=== PATIENT | male | born 1995 | race Caucasian/White ===

== ENCOUNTER 2019-04-18 07:45 | Emergency (ER) | payer OTHER ==
[2019-04-18 07:57] VITALS: TEMP 98.7
[2019-04-18] MEDS ORDERED: IPRATROPIUM-ALBUTEROL 3 ML NEB INHALATION STA ×2 (08:09→08:57)
[2019-04-18] MEDS ORDERED: DEXAMETHASONE SOD PHOSPHATE 10 MG/ML 1 ML VIAL IM STA (08:09)
--- NOTE | 2019-04-18 08:15 | ED ---
General Adult HPI - General Chief complaint: Shortness of Breath Stated complaint: SOB/asthma Time Seen by Provider: 04/18/19 07:59 Source: patient, RN notes reviewed Mode of arrival: wheelchair Limitations: no limitations - History of Present Illness Initial comments: 23-year-old male with a past medical history of asthma presents to the emergency determine for chief complaint of cough. Patient states he has been having a productive cough for the past 24 hours. States he is also short of breath. Feels like he is wheezing. States he has a history of asthma and this feels like an asthma exacerbation. States he ran out of medication for his nebulizer and lost his inhaler. Patient does admit to some mild pain when coughing. Patient has no other complaints at this time including chest pain, abdominal pain, nausea or vomiting, headache, or visual changes. - Related Data Previous Rx's Medication Instructions Recorded Albuterol Inhaler [Ventolin Hfa 1 - 2 puff INHALATION Q6HR PRN #1 04/18/19 Inhaler] inhaler Albuterol Nebulized [Ventolin 2.5 mg INHALATION Q6H PRN #20 nebu 04/18/19 Nebulized] Azithromycin [Zithromax Z-pack] 250 mg PO DIRECTED #6 tab 04/18/19 Dexamethasone [Decadron] 4 mg PO ONCE 1 Days #2 tablet 04/18/19 Allergies Allergy/AdvReac Type Severity Reaction Status Date / Time No Known Allergies Allergy Verified 04/18/19 09:55 Review of Systems ROS Statement: Those systems with pertinent positive or pertinent negative responses have been documented in the HPI. ROS Other: All systems not noted in ROS Statement are negative. Past Medical History Past Medical History: Asthma History of Any Multi-Drug Resistant Organisms: MRSA Date of last positivie culture/infection: 2009 MDRO Source:: hand Past Surgical History: Appendectomy Past Psychological History: ADD/ADHD Smoking Status: Current every day smoker Past Alcohol Use History: Occasional Past Drug Use History: Marijuana General Exam Limitations: no limitations General appearance: alert, in no apparent distress Head exam: Present: atraumatic, normocephalic, normal inspection Eye exam: Present: normal appearance, PERRL, EOMI. Absent: scleral icterus, conjunctival injection, periorbital swelling ENT exam: Present: normal exam, mucous membranes moist Neck exam: Present: normal inspection, full ROM. Absent: tenderness, meningismus, lymphadenopathy Respiratory exam: Present: wheezes (Wheezing noted throughout lung aviles bilaterally), decreased breath sounds. Absent: respiratory distress, rales, rhonchi, stridor Cardiovascular Exam: Present: regular rate, normal rhythm, normal heart sounds. Absent: systolic murmur, diastolic murmur, rubs, gallop, clicks Neurological exam: Present: alert, oriented X3, CN II-XII intact Psychiatric exam: Present: normal affect, normal mood Course Vital Signs 04/18/19 04/18/19 04/18/19 07:54 08:22 08:59 Temperature 98.7 F Pulse Rate 100 106 H Respiratory 26 H 20 Rate Blood Pressure 131/79 O2 Sat by Pulse 95 Oximetry 04/18/19 04/18/19 04/18/19 09:05 09:06 09:15 Temperature Pulse Rate 100 100 102 H Respiratory Rate Blood Pressure O2 Sat by Pulse Oximetry Medical Decision Making - Medical Decision Making 23-year-old male with history of asthma presents for chief cleaned of cough. Patient has had a productive cough for the past 24 hours. States he is also short of breath. On exam patient does have wheezing noted. Patient 95% on room air. Initially had a respiratory rate of 26 however after 2 breathing treatments is normalized to 20. Patient mildly tachycardic, likely secondary to albuterol given. After albuterol wheezing has improved, patient reports that he is feeling much better. However x-ray does show possible correlate for bronchitis asthma or atypical pneumonias. Therefore patient will be treated with a Z-Pawan. Patient was given Decadron here in the emergency department and will be redosed in 2 days. Albuterol inhaler and nebulizer refilled. Patient will follow up with primary care. However he will return here if he has any worsening symptoms. Disposition Clinical Impression: Pneumonia, Asthma exacerbation Disposition: HOME SELF-CARE Condition: Good Instructions (If sedation given, give patient instructions): Asthma (ED), Pneumonia (ED) Additional Instructions: Please take antibiotic starting today. Take Decadron 2 days from now. Continue to use breathing treatments and inhaler as needed. Return here if you have any worsening symptoms. Prescriptions: Dexamethasone [Decadron] 4 mg PO ONCE 1 Days #2 tablet Albuterol Inhaler [Ventolin Hfa Inhaler] 1 - 2 puff INHALATION Q6HR PRN #1 inhaler PRN Reason: Shortness Of Breath Albuterol Nebulized [Ventolin Nebulized] 2.5 mg INHALATION Q6H PRN #20 nebu PRN Reason: Shortness Of Breath Azithromycin [Zithromax Z-pack] 250 mg PO DIRECTED #6 tab Is patient prescribed a controlled substance at d/c from ED?: No Referrals: Luz Patel MD [STAFF PHYSICIAN] - 1-2 days Time of Disposition: 10:11
--- NOTE | 2019-04-18 09:26 | XR ---
EXAMINATION TYPE: XR chest 2V DATE OF EXAM: 04/18/2019 COMPARISON: 10/05/2015 HISTORY: 23-year-old male with pain TECHNIQUE: PA and lateral views FINDINGS: Heart normal size. Aorta and pulmonary vasculature within normal limits. Mild interstitial densities in the lower lungs and mild peribronchial cuffing. No consolidation or pleural effusion. IMPRESSION: Some mild interstitial changes and peribronchial cuffing. Correlate for bronchitis, asthma, or atypic al pneumonias. No focal infiltrate seen.
[2019-04-18 10:16] VITALS: BP 144/76; PULSE 93; RESP 18
== END 2019-04-18 10:38 | disposition home or self-care (01) ==
LOC: EC 07:45
DX: J45.901 Unspecified asthma with (acute) exacerbation (principal); J18.9 Pneumonia, unspecified organism; R00.0 Tachycardia, unspecified; F17.200 Nicotine dependence, unspecified, uncomplicated
CPT/HCPCS: 94640 ×2; 71046; 99285; 96372; J1100

== ENCOUNTER 2020-01-23 18:31 | Emergency (ER) | payer OTHER ==
[2020-01-23] MEDS ORDERED: KETOROLAC 30 MG/ML 1 ML VIAL IM STA (18:44)
--- NOTE | 2020-01-23 18:55 | ED ---
General Adult HPI - General Chief complaint: Extremity Injury, Lower Stated complaint: Leg pain Time Seen by Provider: 01/23/20 18:36 Source: patient, RN notes reviewed, old records reviewed Mode of arrival: wheelchair Limitations: no limitations - History of Present Illness Initial comments: 24-year-old male presenting with left ankle pain. Patient is uncertain if he injured this ankle, believes he may have injured his ankle but was approximately 2 weeks prior. He's had pain on the posterior aspect of his left ankle and heel as well as left for the past several days. He's had pain with ambulation. Denying fever or chills. Denying any specific injury in the past 48 hours. No other pain complaint. - Related Data Previous Rx's Medication Instructions Recorded Albuterol Inhaler (Bulk) [Ventolin 1 - 2 puff INHALATION Q6HR PRN #1 04/18/19 Hfa Inhaler (Bulk)] inhaler Albuterol Nebulized [Ventolin 2.5 mg INHALATION Q6H PRN #20 nebu 04/18/19 Nebulized] Azithromycin [Zithromax Z-pack] 250 mg PO DIRECTED #6 tab 04/18/19 Dexamethasone [Decadron] 4 mg PO ONCE 1 Days #2 tablet 04/18/19 Ibuprofen [Motrin] 600 mg PO Q8HR PRN #24 tab 01/23/20 Allergies Allergy/AdvReac Type Severity Reaction Status Date / Time No Known Allergies Allergy Verified 01/23/20 18:35 Review of Systems ROS Statement: Those systems with pertinent positive or pertinent negative responses have been documented in the HPI. ROS Other: All systems not noted in ROS Statement are negative. Past Medical History Past Medical History: Asthma, Pneumonia History of Any Multi-Drug Resistant Organisms: MRSA Date of last positivie culture/infection: 2009 MDRO Source:: hand Past Surgical History: Appendectomy Past Psychological History: ADD/ADHD Smoking Status: Current every day smoker Past Alcohol Use History: Occasional Past Drug Use History: Marijuana General Exam Limitations: no limitations General appearance: alert, in no apparent distress Head exam: Present: atraumatic, normocephalic Eye exam: Present: normal appearance, PERRL ENT exam: Present: normal exam Neck exam: Present: normal inspection. Absent: tenderness, meningismus Respiratory exam: Present: normal lung sounds bilaterally. Absent: respiratory distress, wheezes Cardiovascular Exam: Present: regular rate, normal rhythm GI/Abdominal exam: Present: soft. Absent: distended, tenderness, guarding Extremities exam: Present: other (Left lower extremity, no significant swelling in the calf, there is swelling on the medial aspect of the left heel and swelling below the medial malleolus with tenderness to palpation. There is no erythema, no fluctuance. There is tenderness along the Achilles. Distal pulses are intact. Range of motion is limited secondary to pain.) Neurological exam: Present: alert, oriented X3, CN II-XII intact. Absent: motor sensory deficit Psychiatric exam: Present: normal affect, normal mood Skin exam: Present: warm, dry, intact. Absent: cyanosis, diaphoretic, erythema Course Vital Signs 01/23/20 18:32 Temperature 99.0 F Pulse Rate 89 Respiratory 20 Rate Blood Pressure 136/84 O2 Sat by Pulse 99 Oximetry Procedures - Orthopedic Splinting/Casting Injury #1 Side: left Lower Extremity Injury Location: ankle Lower Extremity Immobilizer: stirrup splint, fiberglass cast Additional Comments: Nonweightbearing. Medical Decision Making - Medical Decision Making 24-year-old with left ankle pain and swelling. On exam there is tenderness on the medial malleolus and medial foot below the medial malleolus, there is some tenderness along the Achilles. No significant warmth. No crepitus or fluctuance. X-ray showing a effusion tibiotalar. No fracture dislocation. Ultrasound performed which is negative for DVT. Patient is placed in a stirrup splint, encouraged to ice, elevate the extremity and take Motrin [id number] for anti-inflammation and pain control. He is given orthopedic follow-up if symptoms persist. He is given strict return parameters with worsening symptoms, or the development of fever. I have a low suspicion for septic arthritis however the injury was approximately 2 weeks ago and symptoms of the present for only 48 hours. I suspect this was secondary to injury or reinjury however patient is given strict return parameters for septic arthritis. Disposition Clinical Impression: Ankle sprain Disposition: HOME SELF-CARE Condition: Good Instructions (If sedation given, give patient instructions): Ankle Sprain (ED) Prescriptions: Ibuprofen [Motrin] 600 mg PO Q8HR PRN #24 tab PRN Reason: Pain Is patient prescribed a controlled substance at d/c from ED?: No Referrals: None,Stated [Primary Care Provider] - 1-2 days Fer Hastings MD [Medical Doctor] - 1-2 days Time of Disposition: 19:35
--- NOTE | 2020-01-23 19:12 | XR ---
EXAMINATION TYPE: XR ankle complete LT DATE OF EXAM: 01/23/2020 COMPARISON: NONE HISTORY: 24-year-old male with ankle pain after injury TECHNIQUE: 3 views FINDINGS: Os supranaviculare noted. Underlying tibiotalar joint effusion. Smooth delineation to the Achilles te ndon. Subtalar joint is aligned. Ankle mortise is congruent. No acute fracture, subluxation, or dislo cation seen. Talar dome is intact. IMPRESSION: Tibiotalar joint effusion. Otherwise, no acute osseous abnormality seen.
--- NOTE | 2020-01-23 19:45 | US ---
EXAMINATION TYPE: US venous doppler duplex LE LT DATE OF EXAM: 01/23/2020 7:22 PM COMPARISON: NONE CLINICAL HISTORY: 24-year-old male rule out DVT. Edema and pain left lower leg for 3 to 4 days SIDE PERFORMED: left TECHNIQUE: The lower extremity deep venous system is examined utilizing real time linear array sonog philomena with graded compression, doppler sonography and color-flow sonography. FINDINGS: VESSELS IMAGED: External Iliac Vein (EIV) Common Femoral Vein Deep Femoral Vein Greater Saphenous Vein * Femoral Vein Popliteal Vein Small Saphenous Vein * Proximal Calf Veins (* superficial vessels) Left Leg: No evidence of DVT IMPRESSION: No evidence for DVT within the left lower extremity imaged from the groin through the upper calf.
[2020-01-23 19:57] VITALS: BP 141/94; PULSE 68; RESP 16; TEMP 98.7
== END 2020-01-23 19:55 | disposition home or self-care (01) ==
LOC: EC 18:31
DX: S93.402A Sprain of unspecified ligament of left ankle, initial encounter (principal); F17.200 Nicotine dependence, unspecified, uncomplicated; Z86.14 Personal history of Methicillin resistant Staphylococcus aureus infection; X58.XXXA Exposure to other specified factors, initial encounter
CPT/HCPCS: 73610; 93971; 99284; 29515; 96372; J1885

== ENCOUNTER 2020-07-02 01:42 | Inpatient (IN) | payer MEDICAID, OTHER ==
--- NOTE | 2020-07-02 02:13 | ED ---
Psych HPI - General Source: patient Mode of arrival: ambulatory - History of Present Illness MD Complaint: suicidal ideation, feels depressed Onset/Timin -: days(s) Associated Psychiatric Symptoms: depression, suicidal ideation Quality: getting worse Improves With: none Worsens With: drug use Context: recent drug abuse Associated Symptoms: denies other symptoms <JeannieGerald - Last Filed: 07/02/20 02:10> <Oleg Clifford - Last Filed: 07/02/20 08:42> - General Chief Complaint: Psychiatric Symptoms Stated Complaint: Mental health Time Seen by Provider: 07/02/20 01:56 - History of Present Illness Initial Comments: This patient is 24-year-old man who presents to be evaluated for depression and suicidal ideation. The patient states that he has had some long-standing depression and is not currently receiving any treatment. Earlier today, patient relapsed and used cocaine and he has had some accompanying suicidal ideation. (Gerald Dennis) - Related Data Home Medications Medication Instructions Recorded Confirmed No Known Home Medications 07/02/20 07/02/20 Allergies Allergy/AdvReac Type Severity Reaction Status Date / Time No Known Allergies Allergy Verified 07/02/20 08:00 Review of Systems ROS Other: All systems not noted in ROS Statement are negative. Constitutional: Denies: fever, chills Respiratory: Denies: cough, dyspnea Cardiovascular: Denies: chest pain, palpitations, syncope Gastrointestinal: Denies: abdominal pain, vomiting, diarrhea Genitourinary: Denies: dysuria Skin: Denies: rash Neurological: Denies: headache, weakness, numbness Psychiatric: Reports: depression, suicidal thoughts. Denies: auditory hallucinations, visual hallucinations, homicidal thoughts <Gerald Dennis - Last Filed: 07/02/20 02:10> ROS Other: All systems not noted in ROS Statement are negative. <Oleg Clifford - Last Filed: 07/02/20 08:42> ROS Statement: Those systems with pertinent positive or pertinent negative responses have been documented in the HPI. Past Medical History Past Medical History: Asthma, Pneumonia History of Any Multi-Drug Resistant Organisms: MRSA Date of last positivie culture/infection: 2009 MDRO Source:: hand Past Surgical History: Appendectomy Past Psychological History: ADD/ADHD, Anxiety, Bipolar, Depression Smoking Status: Current every day smoker Past Alcohol Use History: Occasional Past Drug Use History: Cocaine, Marijuana <Gerald Dennis - Last Filed: 07/02/20 02:10> General Exam Limitations: no limitations General appearance: alert, in no apparent distress Head exam: Present: atraumatic, normocephalic Eye exam: Present: normal appearance. Absent: scleral icterus, conjunctival injection Respiratory exam: Present: normal lung sounds bilaterally. Absent: respiratory distress, wheezes, rales, rhonchi, stridor Cardiovascular Exam: Present: regular rate, normal rhythm, normal heart sounds. Absent: systolic murmur, diastolic murmur, rubs, gallop GI/Abdominal exam: Present: soft. Absent: distended, tenderness, guarding, rebound Extremities exam: Present: normal inspection, normal capillary refill Neurological exam: Present: alert Psychiatric exam: Present: depressed, suicidal ideation. Absent: agitated, anxious, flat affect, manic, homicidal ideation Skin exam: Present: warm, dry, intact, normal color. Absent: rash <Gerald Dennis - Last Filed: 07/02/20 02:10> Course Vital Signs 07/02/20 01:46 Temperature 98.6 F Pulse Rate 65 Respiratory 20 Rate Blood Pressure 150/87 O2 Sat by Pulse 98 Oximetry Medical Decision Making - Lab Data Lab Results 07/02/20 Range/Units 02:19 Urine Opiates Screen Not Detected (NotDetected) Ur Oxycodone Screen Not Detected (NotDetected) Urine Methadone Screen Not Detected (NotDetected) Ur Propoxyphene Screen Not Detected (NotDetected) Ur Barbiturates Screen Not Detected (NotDetected) U Tricyclic Antidepress Not Detected (NotDetected) Ur Phencyclidine Scrn Not Detected (NotDetected) Ur Amphetamines Screen Not Detected (NotDetected) U Methamphetamines Scrn Not Detected (NotDetected) U Benzodiazepines Scrn Not Detected (NotDetected) Urine Cocaine Screen Detected H (NotDetected) U Marijuana (THC) Screen Detected H (NotDetected) Disposition <Gerald Dennis - Last Filed: 07/02/20 02:10> Time of Disposition: 08:42 <Oleg Clifford - Last Filed: 07/02/20 08:42> Clinical Impression: Suicidal ideation, Depression Disposition: ADMITTED IP TO THIS HOSP Referrals: None,Stated [Primary Care Provider] - 1-2 days
[2020-07-02 02:40] LABS: Amphetamine Screen,Urine Not Detected (NotDetected); Barbiturate Screen,Urine Not Detected (NotDetected); Benzodiazepines Screen,Urine Not Detected (NotDetected); Cocaine Screen,Urine Detected (NotDetected); Methadone Screen, Urine Not Detected (NotDetected); Opiate Screen,Urine Not Detected (NotDetected); Oxycodone Screen, Urine Not Detected (NotDetected); Phencyclidine Screen,Urine Not Detected (NotDetected); Tricyclic Antidepressant,Urine Not Detected (NotDetected); Urn Cannabinoid Scrn Detected (NotDetected)
[2020-07-02] MEDS ORDERED: ZIPRASIDONE 20 MG VIAL IM PRN (13:04)
[2020-07-02] MEDS ORDERED: ACETAMINOPHEN TAB 325 MG TAB PO PRN (13:04)
[2020-07-02] MEDS ORDERED: LORazepam 1 MG TAB PO PRN (13:04)
[2020-07-02] MEDS ORDERED: MAGNESIUM HYDROXIDE 2,400 MG/10 ML CUP PO PRN (13:04)
[2020-07-02] MEDS ORDERED: MAG HYDROX/AL HYDROX/SIMETH 30 ML CUP PO PRN (13:04)
[2020-07-02] MEDS ORDERED: LORazepam 2 MG/ML INJ IM PRN (13:06)
[2020-07-02] MEDS: NICOTINE 14MG/24HR PATCH TRANSDERM SCH (15:01)
[2020-07-02] MEDS: FLUoxetine HCL 20 MG CAP PO SCH (20:46)
[2020-07-02] MEDS: OLANZapine 5 MG TAB PO SCH (20:47)
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
[2020-07-03 08:17] LABS: ALT 18 U/L (4-49); AST 24 U/L (17-59); African American GFR (CKD) >90 (>60 ml/min/1.73 sqM); Albumin 4.2 g/dL (3.5-5.0); Alkaline Phosphatase 48 U/L (38-126); Anion Gap 7 mmol/L; Blood Urea Nitrogen 17 mg/dL (9-20); Calcium 9.4 mg/dL (8.4-10.2); Carbon Dioxide 25 mmol/L (22-30); Chloride 107 mmol/L (98-107); Glucose 105 mg/dL (74-99); Non-African American GFR(CKD) 78 (>60 ml/min/1.73 sqM); Potassium 4.6 mmol/L (3.5-5.1); Sodium 139 mmol/L (137-145); Total Bilirubin 0.7 mg/dL (0.2-1.3)
[2020-07-03 08:21] LABS: Basophils # (A) 0.1 k/uL (0-0.2); Basophils % (A) 1 %; Eosinophils # (A) 0.7 k/uL (0-0.7); Eosinophils % (A) 9 %; HCT 53.3 % (39.0-53.0); HGB 17.3 gm/dL (13.0-17.5); Lymphocytes % (A) 38 %; MCH 28.6 pg (25.0-35.0); MCHC 32.4 g/dL (31.0-37.0); MCV 88.3 fL (80.0-100.0); Mean Platelet Volume 7.2; Monocytes # (A) 0.4 k/uL (0-1.0); Monocytes % (A) 6 %; Neutrophils # (A) 3.5 k/uL (1.3-7.7); Neutrophils % (A) 43 %; Platelet Count 253 k/uL (150-450); RBC 6.03 m/uL (4.30-5.90); RDW 12.4 % (11.5-15.5); WBC 8.1 k/uL (3.8-10.6)
[2020-07-03] MEDS: OLANZapine 5 MG TAB PO SCH ×2 (10:24→22:11)
[2020-07-03] MEDS: FLUoxetine HCL 20 MG CAP PO SCH (10:24)
[2020-07-03] MEDS: NICOTINE 14MG/24HR PATCH TRANSDERM SCH (10:24)
--- NOTE | 2020-07-03 16:01 | PN ---
PROGRESS NOTE DATE OF SERVICE: 07/03/2020 CHIEF COMPLAINT: The patient was depressed with suicidal thinking. He said he was contemplating hanging himself and took the step of removing a ceiling tile to access a joist as a place to tie a rope. INTERVAL HISTORY: Patient has been doing fair. He had a quiet day yesterday. He comes out in the day area. He attended groups. He interacts with others. He has been cooperative with care. He said he slept excessively last night in into the morning so he missed the morning group. He said that the medicine has made him quite tired. He continues with a down mood, though says that things are a little better for him. He has a little better outlook. He says he has had time to process things that he has been through and feels that he can make some better plans for himself for the future. Staff have noted that he tends not to show much for any emotional issues. He seems to minimize some of the issues that led to him coming into the hospital which apparently were quite serious and intense. He has no specific complaints relating to his medications other than sedation. MENTAL STATUS: Patient gave good eye contact. Psychomotor activity was a little restless. He answered questions appropriately. His thoughts were clear. His affect was somewhat constricted. He had a reserved manner. He smiled a little throughout the interview, though it seemed to be as much an anxious smile is anything else. His mood was reserved. It was difficult to sense how distressed he might be feeling. There was no indication of thought disorder. Cognition was clear. ASSESSMENT: I will continue the current diagnosis and treatment plan. The patient has been attending groups and seems to be appropriate in groups. I encouraged him to continue groups. I will reduce his Zyprexa to just 5 mg at bedtime. I discussed some discharge planning issues with the patient. I reviewed medication issues in regard to indication, potential side effects and concerns relating to metabolics. We will focus on stabilization and discharge planning. MMCYNTHIAL / BAYRONN: [id number] /
--- NOTE | 2020-07-03 16:59 | P.MDCNMH ---
History of Present Illness H&P Date: 07/03/20 24-year-old male with PMH of cocaine abuse presents the ED for suicidal ideation. He has been admitted to mental health unit for further management and observation. [facility] physicians has been consulted for medical management of this patient. Patient reports relapsing on cocaine. Last use 2 days ago. States that he was clean for 5 months prior to relapsing. Patient complains of fatigue and states he does not want to take any psychiatric medication due to sleepiness. He has no other complaints. He denies any headache, lower extremity edema, nausea or vomiting, fever chills, cough, chest pain, shortness of breath, palpitations, changes in urination or bowel habits. No changes in appetite or weight. He denies any dizziness, numbness/weakness/tingling of the extremities. His vital signs are stable. CBC shows hemoconcentration with hemoglobin of 17.3. CMP shows creatinine of 1.6, glucose of 105. UDS is positive for marijuana and cocaine. Review of Systems Pertinent positives and negatives as discussed in HPI, a complete review of s ystems was performed and all other systems are negative. Past Medical History Past Medical History: Asthma, Pneumonia History of Any Multi-Drug Resistant Organisms: MRSA Date of last positivie culture/infection: 2009 MDRO Source:: hand Past Surgical History: Appendectomy Past Psychological History: ADD/ADHD, Anxiety, Bipolar, Depression Smoking Status: Current every day smoker Past Alcohol Use History: Occasional Past Drug Use History: Cocaine, Marijuana Medications and Allergies Home Medications Medication Instructions Recorded Confirmed Type No Known Home Medications 07/02/20 07/02/20 History Allergies Allergy/AdvReac Type Severity Reaction Status Date / Time No Known Allergies Allergy Verified 07/02/20 08:00 Physical Exam Vitals: Vital Signs Temp Pulse Resp BP 07/03/20 07:05 97.9 F 57 L 16 107/67 General: [non toxic], [no distress], [appears at stated age] Derm: [warm], [dry] Head: [atraumatic], [normocephalic], [symmetric] Eyes: [EOMI], [no lid lag], [anicteric sclera] Mouth: [no lip lesion], [mucus membranes moist] Cardiovascular: [S1S2 reg], [no murmur], [positive posterior tibial pulse bilateral], Lungs: [CTA bilateral], [no rhonchi, no rales] , [no accessory muscle use] Abdominal: [soft], [ nontender to palpation], [no guarding], [no appreciable organomegaly] Ext: [no gross muscle atrophy], [no edema], [no contractures] Neuro: [ CN II-XI grossly intact], [no focal neuro deficits] Psych: [Alert], [oriented], [appropriate affect] Cranial Nerve Examination - Cranial Nerves Cranial Nerve II- Optic: Intact Cranial Nerve III- Oculomotor: Intact Cranial Nerve IV- Trochlear: Intact Cranial Nerve V- Trigeminal: Intact Cranial Nerve - Abducens: Intact Cranial Nerve VII- Facial: Intact Cranial Nerve VIII- Auditory: Intact Cranial Nerve IX- Glossopharyngeal: Intact Cranial Nerve X- Vagus: Intact Cranial Nerve XI- Accessory: Intact Cranial Nerve XII- Hypoglossal: Intact Results CBC & Chem 7: 07/03/20 07:54 07/03/20 07:54 Labs: Abnormal Lab Results - Last 24 Hours (Table) 07/03/20 07/03/20 Range/Units 07:54 07:54 RBC 6.03 H (4.30-5.90) m/uL Hct 53.3 H (39.0-53.0) % Creatinine 1.26 H (0.66-1.25) mg/dL Glucose 105 H (74-99) mg/dL Assessment and Plan Assessment: Elevated creatinine Polysubstance abuse Smoker Creatinine 1.26. Unknown baseline. Plans: Encourage hydration by mouth. Avoid nephrotoxic medications. UDS positive cocaine and marijuana. Plans: Patient advised to quit. Ativan as needed for agitation. Patient would like gum as patch is irritating to his skin. Plans: Nicotine polacrilex 2 mg every 4 hours as needed. Thank you for this consult. Please call with any additional questions or concerns.
[2020-07-04] MEDS: FLUoxetine HCL 20 MG CAP PO SCH (08:53)
[2020-07-04] MEDS: OLANZapine 5 MG TAB PO SCH (21:54)
[2020-07-05] MEDS: FLUoxetine HCL 20 MG CAP PO SCH (10:11)
--- NOTE | 2020-07-05 10:56 | PN ---
PROGRESS NOTE DATE OF SERVICE: 07/04/2020 CHIEF COMPLAINT: The patient was depressed with suicidal thinking. He said he was contemplating hanging himself and took a step of removing a ceiling tile to access a joist as a place to tie a rope. INTERVAL HISTORY: Patient has been doing fairly well. He had a quiet day yesterday he tends to keep to himself. He does come out some and will move around the unit. He will interact a little with others. He did not attend groups yesterday. He has been appropriate in his interaction with staff and peers. He reports that he slept well last night, today he has been up. He comes out in the day area. He has not attended groups today either. He has not had any complaints or concerns when I talked with him. He is focused on feeling like he needs to get back to work, so he does not have any problems with his job situation. He tolerates his psychotropic medications. MENTAL STATUS: Patient gave good eye contact. Psychomotor activity was a little restless. He answered questions appropriately. His thoughts were clear. He did not say a lot. His affect was somewhat blunted, though he had a calm manner. His mood was a little down, though not clearly depressed. He did appear to be significantly distressed. There was no indication of thought disorder. He voiced no thoughts of harm to self or others. Cognition was clear. ASSESSMENT: I will continue the current diagnosis and treatment plan. The patient will continue psychotropic medications the same. I reviewed his medications. We discussed that Zyprexa is indicated mainly for some of the stress reactions he has been dealing with. We discussed that Prozac will be a longer term medication and he may not a benefit over the first few weeks. I reviewed discharge planning issues. We will focus on stabilization and discharge planning. MMODL / IJN: [id number] /
[2020-07-05] MEDS ORDERED: FLUoxetine HCL 20 MG CAP PO STA (11:39)
--- NOTE | 2020-07-05 12:22 | P.PN ---
Progress Note - Text Progress Note Date: 07/05/20 Interval History: Patient was seen lying down in his bed this morning and was directable and agr eeable to speak with screenplay writer in the office. Patient appeared to be calm and appropriate during interview however appear to be lethargic and yawning several times. He spoke briefly about the circumstances that led him to come to the hospital and his suicidal thoughts and also his relapse on cocaine recently. He states that "I don't like my medicines" and when asked more about this he states that he is experiencing grogginess and lethargy this morning and throughout the weekend and believes that he is sleeping too much. Patient was agreeable to have his medication switch today and Zyprexa was discontinued. Patient is agreeable to try trazodone and the risks side effects and benefits were explained to him. He states that his mood is then improving. He claims that the suicidal thoughts have been decreasing and is having none today. He states that he is interacting with some peers on the unit. He states that he has a fair appetite. At this time patient denies any suicidal or homical ideations, intent or plan. Patient denies any auditory, visual hallucinations and denies any paranoia or delusions. Mental Status Exam: General Appearance: Patient appears to be well built, stated age is alert, directable, and cooperative. Improving hygiene and grooming. Behavior: Patient is calmly seated without any agitated behavior. Appears to be lethargic today. Speech: Patient's speech is fluent and nonpressured. Mood/Affect: Mood is improving mildly, affect is congruent and constricted. Suicidality/Homicidality: Patient denies having any suicidal or homicidal ideation intent or plan. Perceptions: Patient denies any visual hallucinations and denies any auditory hallucinations Though content/process: There is no evidence of any delusional thought content and thought process is linear and goal-directed. Describes less suicidal thoughts today. More future oriented. Memory and concentration: AOX3, grossly intact for the purposes of this session Judgment and insight: Improving mildly Assessment Major depressive disorder, without psychotic features Cocaine abuse Plan: -Patient continues to meet criteria for inpatient psychiatric admission for symptom stabilization and safety. Patient has signed adult voluntary form and medication consent and was placed in patient's chart. -Medications: Increased patient's Prozac to 40 mg daily for mood/anxiety. Discontinued Zyprexa due to over sedation and grogginess. We'll replace with trazodone 50 mg daily at bedtime for insomnia/mood. -When necessary Ativan and Geodon for agitation/aggression. -NRT -not needed as patient does not smoke. -SW on board for discharge planning. Encouraged the patient to participate in milieu. Likely discharge in 2-3 days. Patient claims that he is willing to go live with his brother upon discharge.
[2020-07-05] MEDS: NICOTINE POLACRILEX 2 MG GUM BUCCAL PRN ×2 (17:06→22:19)
[2020-07-05] MEDS: traZODone HCL 50 MG TAB PO SCH ×2 (20:52→22:17)
[2020-07-06] MEDS: FLUoxetine HCL 20 MG CAP PO SCH (08:29)
--- NOTE | 2020-07-06 10:24 | P.PN ---
Progress Note - Text Progress Note Date: 07/06/20 Interval History: Patient was seen taking part in group this morning and was directable and agre eable to speak with sign writer hand in the office. Patient appeared to be calm and appropriate during interview. He states that he is feeling less lethargic today and more awake. He claims that he has been going to groups and try to participate as best as he can. He states that he is feeling more optimistic about his future and his sobriety. He claims that he has not yet called the access line to get into [facility] however we'll be doing that today. He states that he will likely be living with his brother upon discharge. Patient claims that he went to sleep approximately at 2 AM last night and only got approximately 4 hours of sleep. Patient was agreeable to have his trazodone increased today to 100 mg. He states that his mood is then improving mildly. He states that he is interacting with some peers on the unit. He states that he has a fair appetite. At this time patient denies any suicidal or homical ideations, intent or plan. Patient denies any auditory, visual hallucinations and denies any paranoia or delusions. Mental Status Exam: General Appearance: Patient appears to be well built, stated age is alert, directable, and cooperative. Improving hygiene and grooming. Behavior: Patient is calmly seated without any agitated behavior. Appears to be less lethargic today. Speech: Patient's speech is fluent and nonpressured. Mood/Affect: Mood is improving mildly, affect is congruent and constricted. Suicidality/Homicidality: Patient denies having any suicidal or homicidal ideation intent or plan. Perceptions: Patient denies any visual hallucinations and denies any auditory hallucinations Though content/process: There is no evidence of any delusional thought content and thought process is linear and goal-directed. Spoke about his sobriety. More future oriented. Memory and concentration: AOX3, grossly intact for the purposes of this session Judgment and insight: Improving mildly Assessment Major depressive disorder, without psychotic features Cocaine abuse Plan: -Patient continues to meet criteria for inpatient psychiatric admission for symptom stabilization and safety. Patient has signed adult voluntary form and medication consent and was placed in patient's chart. -Medications: Continue with patient's Prozac to 40 mg daily for mood/anxiety. Increased trazodone 100 mg daily at bedtime for insomnia/mood. -When necessary Ativan and Geodon for agitation/aggression. -NRT -not needed as patient does not smoke. -SW on board for discharge planning. Encouraged the patient to participate in milieu. Patient claims that he is willing to go live with his brother upon discharge. Patient will be calling the access line to go to inpatient rehab at [facility]. Likely discharge tomorrow to brother's house.
[2020-07-06] MEDS: NICOTINE POLACRILEX 2 MG GUM BUCCAL PRN ×2 (15:36→19:30)
[2020-07-06] MEDS ORDERED: traZODone HCL 100 MG TAB PO SCH (21:00)
[2020-07-07 06:41] VITALS: TEMP 98.1
[2020-07-07] MEDS: NICOTINE POLACRILEX 2 MG GUM BUCCAL PRN (08:52)
[2020-07-07] MEDS: FLUoxetine HCL 20 MG CAP PO SCH (08:52)
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
[2020-07-07 13:57] VITALS: BP 106/74; PULSE 73; RESP 20
[2020-07-07] MEDS ORDERED: diphenhydrAMINE 25 MG CAP PO SCH (21:00)
== END 2020-07-07 11:49 | DRG 885 ==
LOC: EC 01:42 → 3MHU 09:39
PROVIDERS: ADMIT Psychiatry & Neurology Psychiatry; ATTEND Psychiatry & Neurology Psychiatry
DX: F33.2 Major depressive disorder, recurrent severe without psychotic features (principal); R45.851 Suicidal ideations; F14.10 Cocaine abuse, uncomplicated; F40.10 Social phobia, unspecified; F41.9 Anxiety disorder, unspecified; F43.10 Post-traumatic stress disorder, unspecified; G47.00 Insomnia, unspecified; J45.909 Unspecified asthma, uncomplicated; F90.9 Attention-deficit hyperactivity disorder, unspecified type; Z87.01 Personal history of pneumonia (recurrent); Z86.14 Personal history of Methicillin resistant Staphylococcus aureus infection
CPT/HCPCS: 80053; 80306; 85025; 99285